=== PATIENT | female | born 1990 | race Caucasian/White ===

== ENCOUNTER 2019-10-22 19:18 | Inpatient (IN) | payer BC, SELFPAY ==
[2019-10-22] VITALS (45 sets, daily range): BP systolic 110–141; BP diastolic 55–89; PULSE 71–93; TEMP 36.6; O2SAT 96–100; BMI 35.3
[2019-10-22 20:35] LABS: Basophils Percent Auto 0.3 % (0.2-1.2); Eosinophils Absolute Auto 0.1 K/mm3 (0-0.3); Eosinophils Percent Auto 0.5 % (0-4.4); Hematocrit 34.1 % (37.0-47.0); Hemoglobin 11.3 g/dL (12.0-15.0); Immature Granulocyte Absolute 0.04 K/mm3 (0.00-0.031); Immature Granulocyte Percent A 0.4 % (0-0.5); Lymphocytes Absolute Auto 2.11 K/mm3 (0.9-3.2); Lymphocytes Percent Auto 19.2 % (18.3-44.2); Mean Corpuscular HGB Conc 33.1 g/dl (32-36); Mean Corpuscular Volume 87.7 fl (80-100); Mean Platelet Volume 11.2 fl (7.4-10.4); Monocytes Absolute Auto 0.8 K/mm3 (0.1-0.6); Monocytes Percent Auto 7.5 % (2.6-8.5); Neutrophils Absolute Auto 7.9 K/mm3 (1.3-6.7); Neutrophils Percent Auto 72.1 % (45.5-73.1); Platelet Count Result 232 k/mm3 (150-375); Red Blood Count 3.89 M/mm3 (4.2-5.4); Red Cell Distribution Width 13.3 % (11.5-14.5)
[2019-10-22] MEDS: LACTATED RINGERS 1,000 ML 125 ML IV CONT ×2 (20:40→21:30)
--- NOTE | 2019-10-22 21:05 | WPDANESEPPF ---
Anes - Initial Pre Proc Eval Procedure: labor epidural Date/Time: 10/22/19 21:05 Surgeon: Anais Bangura MD Pre Op Diagnosis: labor pain Pre Op Diagnosis: Contractions Patient Data Age: 29 Gender: F Height: 1.6 m Weight: 90.5 kg Last Vital Signs Pulse 83 10/22/19 21:03 BP 121/55 L 10/22/19 21:03 Pulse Ox 100 10/22/19 21:04 Allergies Allergy/AdvReac Type Severity Reaction Status Date / Time No Known Allergies Allergy Verified 10/20/19 14:54 Home Medications Medication Instructions Recorded Confirmed Type pantoprazole 40 mg tablet,delayed 40 mg PO QAM 10/06/19 History release prenat.vits,heather,zzj-phwb-hdpdv 1 tablet PO DAILY 10/06/19 History Laboratory Tests 10/22/19 10/22/19 10/22/19 20:30 20:30 20:30 WBC 11.0 K/mm3 H K/mm3 (4.5-10.0) RBC 3.89 M/mm3 L M/mm3 (4.2-5.4) Hgb 11.3 g/dL L g/dL (12.0-15.0) Hct 34.1 % L % (37.0-47.0) MCV 87.7 fl fl (80-100) MCH 29.0 pg pg (26-34) MCHC 33.1 g/dl g/dl (32-36) RDW 13.3 % % (11.5-14.5) Plt Count 232 k/mm3 k/mm3 (150-375) MPV 11.2 fl H fl (7.4-10.4) Immature Gran % (Auto) 0.4 % % (0-0.5) Neut % (Auto) 72.1 % % (45.5-73.1) Lymph % (Auto) 19.2 % % (18.3-44.2) [place] % (Auto) 7.5 % % (2.6-8.5) Eos % (Auto) 0.5 % % (0-4.4) Baso % (Auto) 0.3 % % (0.2-1.2) Lymph # (Auto) 2.11 K/mm3 K/mm3 (0.9-3.2) [place] # (Auto) 0.8 K/mm3 H K/mm3 (0.1-0.6) Eos # (Auto) 0.1 K/mm3 K/mm3 (0-0.3) Baso # (Auto) 0.0 K/mm3 K/mm3 (0.0-0.1) Abs Immat Gran (auto) 0.04 K/mm3 H K/mm3 (0.00-0.031) Absolute Neuts (auto) 7.9 K/mm3 H K/mm3 (1.3-6.7) Absolute Nucleated RBC 0.0 K/mm3 K/mm3 (0.0-0.012) Nucleated RBC % 0.0 % % (0.0-0.2) RPR Pending Blood Type Pending Antibody Screen Pending Patient hx anesthesia problems: none Family hx anesthesia problems: none PMFSH Past Medical History Medical History 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 Iron deficiency anemia Vaginal delivery 09/05/18, , full term, female, 8#2 Family History Family History Grandparent Carcinoma of colon Father Diabetes mellitus Hypertension Mother Hypertension Social History Social History Smoking status: Never smoker Alcohol intake: never Substance use: never Spiritual care concerns: No Anes - Eval Final PreProcedure Day of Procedure 10/22/19 21:05 Patient weight: obese Heart: regular rate and rhythm Lungs: clear to auscultation and normal air movement Airway: Mallampati scale Neurological: alert and oriented ASA classification: II Anesthetic plan: proceed Anesthesia type and monitoring: regional epidural and standard monitoring Informed Consent: The patient's anesthetic plan and its attendant risks and benefits were discussed with the patient/family/POA. Questions were solicited and answers provided to the satisfaction of the patient/family/POA.
--- NOTE | 2019-10-22 21:14 | LDADM ---
This patient, Carly Amaya, was admitted to Labor/Delivery/Recovery 104 on 10/22/19 at 19:18. Plans for labor, pain management and were discussed with patient. Patient/family oriented to hospital policies and general routines including ID bracelet, bed and alarms, visiting hours, pain management, procedures, bathroom and other care routines, personal items, smoking policy, room service/diet and guest tray routines, security routines, and visiting hours. Patient/Family are encouraged to report perceived risks to care and to ask questions if they do not understand what they are told or what they should do. See OBIX for further documentation.
[2019-10-22] MEDS: OXYTOCIN 30 UNITS/NS 500 ML 30 UNITS/500 ML BAG 999 UNITS IV CONT (22:06)
--- NOTE | 2019-10-22 22:14 | PM.OBPRVD ---
OB - Delivery Note Procedure Intrapartal events: None Induction method: none Delivery monitor: external FHT and external uterine Route of delivery: Laceration description: Vaginal - 1st Degree Delivery repair: vicryl Specimen: No Estimated blood loss (mL): 73 Anesthesia type: Epidural Disposition: floor [place] Baby Date of : 10/22/19 Time of : 22:01 Weeks of gestation at delivery: 39 gender: Male Weight (pounds): 7 Weight (ounces): 6 presentation: vertex Placenta delivery description: Spontaneous cord vessel description: 3 Vessels score one minute: 9 score five minutes: 9
[2019-10-22] MEDS: OXYTOCIN 30 UNITS/NS 500 ML 30 UNITS/500 ML BAG 125 UNITS IV CONT (22:38)
[2019-10-23 00:01] VITALS: BP 113/65; PULSE 78
[2019-10-23 00:16] VITALS: BP 110/74; PULSE 91
[2019-10-23] MEDS: WITCH HAZEL 40 PADS 1 PAD TOPICAL (00:16)
[2019-10-23] MEDS: BENZOCAINE 20% AER SPR (*SP) 56 GM CAN 1 SPRAY TOPICAL (00:16)
[2019-10-23] MEDS: IBUPROFEN 600 MG TABLET PO ×3 (00:40→19:15)
[2019-10-23 00:45] VITALS: BP 128/71; PULSE 80; RESP 12; TEMP 36.9
--- NOTE | 2019-10-23 01:19 | PC.NURSE ---
0037 Pt to floor per wheelchair accompanied by baby in crib and staff. Plan of care and floor routines explained to pt and she voices understanding. mom encouraged to make needs known to staff.
[2019-10-23 01:24] LABS: HIV 1/2 Ab P24 Ag Result Negative (Negative)
[2019-10-23 05:18] LABS: Hematocrit 32.4 % (37.0-47.0); Hemoglobin 10.6 g/dL (12.0-15.0)
--- NOTE | 2019-10-23 07:00 | PM.OBPNVD ---
OB - PN: Subj Subjective Date/time seen: 10/23/19 07:00 Patient comments: no complaints baby status: doing well OB - PN: Obj Data Labs CBC & Chem 7: 10/23/19 05:01 Labs: Laboratory Results - last 24 hr 10/22/19 10/22/19 10/23/19 20:30 20:30 00:01 WBC 11.0 H RBC 3.89 L Hgb 11.3 L Hct 34.1 L MCV 87.7 MCH 29.0 MCHC 33.1 RDW 13.3 Plt Count 232 MPV 11.2 H Immature Gran % (Auto) 0.4 Neut % (Auto) 72.1 Lymph % (Auto) 19.2 [place] % (Auto) 7.5 Eos % (Auto) 0.5 Baso % (Auto) 0.3 Lymph # (Auto) 2.11 [place] # (Auto) 0.8 H Eos # (Auto) 0.1 Baso # (Auto) 0.0 Abs Immat Gran (auto) 0.04 H Absolute Neuts (auto) 7.9 H Absolute Nucleated RBC 0.0 Nucleated RBC % 0.0 HIV 1&2 Ab/P24 Ag 4thGn Negative Blood Type A Positive Antibody Screen Negative 10/23/19 05:01 WBC RBC Hgb 10.6 L Hct 32.4 L MCV MCH MCHC RDW Plt Count MPV Immature Gran % (Auto) Neut % (Auto) Lymph % (Auto) [place] % (Auto) Eos % (Auto) Baso % (Auto) Lymph # (Auto) [place] # (Auto) Eos # (Auto) Baso # (Auto) Abs Immat Gran (auto) Absolute Neuts (auto) Absolute Nucleated RBC Nucleated RBC % HIV 1&2 Ab/P24 Ag 4thGn Blood Type Antibody Screen OB - PN A/P Plan day: 1 Plan: routine care Time Spent With Patient Time: Total time spent is greater than 50% in coordination of care (as documented) at patient's floor/unit and/or counseling patient: Exam Const: General: comfortable Resp: Effort & Inspection: normal respiratory effort Psych: Appearance: grossly normal Affect: normal affect Attitude: cooperative Judgement: Good judgement present (Psych)
--- NOTE | 2019-10-23 07:52 | PM.OBDSVD ---
DS: Admitting Diagnosis Admitting Diagnosis Admitting Diagnosis: Contractions DS: Discharge Diagnosis Discharge Diagnosis (1) : Code(s): Z34.90 - Encounter for supervision of normal , unspecified, unspecified trimester Status: Acute OB - DS: Summary OB Procedures : None OB Procedures Intrapartum: Spontaneous Vag Delivery OB Procedures: : None Peripartum Data Delivery Method: Natural Vaginal Laceration description: Perineal - 1st Degree complications: none Status at Discharge Functional status at discharge: independent ambulation Overall status at discharge: patient is progressing back to baseline Time Spent with Patient Time attestation: Total time spent providing and/or coordinating discharge services: Time spent: Less than 30 minutes DS: Data Data Completed and Pending Labs on day of discharge: Labs from last 24 hours 10/23/19 10/23/19 10/22/19 05:01 00:01 20:30 WBC RBC Hgb 10.6 L Hct 32.4 L MCV MCH MCHC RDW Plt Count MPV Immature Gran % (Auto) Neut % (Auto) Lymph % (Auto) [place] % (Auto) Eos % (Auto) Baso % (Auto) Lymph # (Auto) [place] # (Auto) Eos # (Auto) Baso # (Auto) Abs Immat Gran (auto) Absolute Neuts (auto) Absolute Nucleated RBC Nucleated RBC % RPR HIV 1&2 Ab/P24 Ag 4thGn Negative Blood Type A Positive Antibody Screen Negative 10/22/19 10/22/19 20:30 20:30 WBC 11.0 H RBC 3.89 L Hgb 11.3 L Hct 34.1 L MCV 87.7 MCH 29.0 MCHC 33.1 RDW 13.3 Plt Count 232 MPV 11.2 H Immature Gran % (Auto) 0.4 Neut % (Auto) 72.1 Lymph % (Auto) 19.2 [place] % (Auto) 7.5 Eos % (Auto) 0.5 Baso % (Auto) 0.3 Lymph # (Auto) 2.11 [place] # (Auto) 0.8 H Eos # (Auto) 0.1 Baso # (Auto) 0.0 Abs Immat Gran (auto) 0.04 H Absolute Neuts (auto) 7.9 H Absolute Nucleated RBC 0.0 Nucleated RBC % 0.0 RPR Pending HIV 1&2 Ab/P24 Ag 4thGn Blood Type Antibody Screen Discharge Plan Discharge Attending physician on discharge: Anais Bangura Discharging Clinician: Brenda Bowens Anticipated Discharge Date/Time: 10/24/19 11:00 Patient Disposition: Home, Self-Care Activity: may shower and pelvic rest Diet: regular Discharge Instructions: Education: Mom and Baby Guide and Preeclampsia handout Given to: Mother Follow-Up: Call your delivering provider's office for an appointment to be seen in: 4 Weeks Mom and baby should come to the [facility] for the follow-up appointment. Appointment Date/Time: October 25, 2019 at 8:00 am What to expect at your follow-up visit: Physical Assessment Call [phone] if you are unable to keep your appointment time. BREAST CARE: * Wear a snug supportive bra. For engorgement or discomfort Bottle Feeding: May apply ice packs EPISIOTOMY/PERINEAL CARE: * Until bleeding stops, use your mitch bottle after urinating * Change your pad frequently throughout the day * You may take sitz baths several times a day (fill your bathtub with warm water and soak for 20 minutes.) Do NOT bathe in the water * No tub baths until seen by your physician - You may shower ACTIVITY: * Rest as much as possible. * Do not exercise or lift anything heavier than your baby (such as laundry or other children.) * Avoid stairs or driving as much as possible. * Do not put anything into the vagina. No douching, tampons, or sexual activity until seen by physician. NOTIFY PHYSICIAN IF YOU HAVE ANY QUESTIONS OR IF ANY OF THE FOLLOWING SYMPTOMS OCCUR: * If your episiotomy or incision becomes red, swollen, or more painful than what you have experienced in the hospital. * If your vaginal bleeding becomes foul smelling. * If your vaginal bleeding becomes more heavy than a period or if your bleeding changes from pink to bright red. However, yo
[2019-10-23 09:25] VITALS: BP 125/82; PULSE 87; RESP 18; TEMP 36.8
--- NOTE | 2019-10-23 09:45 | PC.NURSE ---
Mother called out for assist with waking for feeding. Infant was circumcised within the last hour. Reviewed may be sleepy this feeding. Demonstrated stimulation techniques to wake . was able to wake with feeding cues noted. Reviewed feeding cues, frequencies, duration of feedings, feeding elimination flow sheet, and signs of adequate intake. Reviewed positioning/alignment in cross cradle, holding breast in U hold and guided asymmetrical latch on. Discussed rational for each. was able to latch correctly with first attempt. Infant nursed eagerly, with steady draws and frequent swallowing noted. Reviewed signs of a correct latch, effective nursing and suck swallow ratio. Infant was able to maintain latch without discomfort to mother. Nipple care reviewed. Suggested mother stimulate during feeding to keep infant awake and nursing effectively and to assist with maintaining deep latch. Demonstrated how to adjust latch more deeply while feeding. Instructed mother to call out for RN assistance if she is unable to latch infant for feeding or she has discomfort with nursing. Instructed feeding should be initiated three hours from start of last feeding or if feeding cues are noted before. Mother voiced understanding of information shared.
[2019-10-23 09:51] LABS: Rapid Plasma Reagin Non-Reactive (NonReactive)
[2019-10-23] MEDS: MULTIVIT/MIN/PREN/FOL AC/IRON TABLET 1 TAB PO (10:35)
--- NOTE | 2019-10-23 13:25 | PC.NURSE ---
Mother called out for assist to wake for feeding. Demonstrated stimulation techniques to wake. Assisted with to breast. sleepy and several attempts made before was able to latch. Small amount of sugar water to tongue to entice to feed. Reviewed positioning/alignment in cross cradle, holding breast in U hold and guided asymmetrical latch on. Discussed rational for each. Infant nursed eagerly, with steady draws and frequent swallowing noted. Reviewed signs of a correct latch, effective nursing and suck swallow ratio. Infant was able to maintain latch without discomfort to mother. Nipple care reviewed. Suggested mother stimulate during feeding to keep infant awake and nursing effectively and to assist with maintaining deep latch. Demonstrated how to adjust latch more deeply while feeding. Instructed mother to call out for RN assistance if she is unable to latch for feeding or she has discomfort with nursing. Instructed feeding should be initiated three hours from start of last feeding or if feeding cues are noted before. Mother voiced understanding of information shared.
[2019-10-23 19:30] VITALS: BP 115/69; PULSE 77; RESP 18; TEMP 36.5; O2SAT 98
[2019-10-24] MEDS: WITCH HAZEL 40 PADS 1 PAD TOPICAL (05:13)
[2019-10-24] MEDS: IBUPROFEN 600 MG TABLET PO (05:13)
--- NOTE | 2019-10-24 07:44 | PM.OBPNVD ---
OB - PN: Subj Subjective Date/time seen: 10/24/19 07:44 OB - PN: Obj Data Labs CBC & Chem 7: 10/23/19 05:01 Labs: Laboratory Results - last 24 hr 10/22/19 20:30 RPR Non-reactive OB - PN A/P Plan day: 2 Plan: discharge home Time Spent With Patient Time: Total time spent is greater than 50% in coordination of care (as documented) at patient's floor/unit and/or counseling patient: Review of Systems Review of Systems: All systems reviewed & are unremarkable except as noted in HPI and below Exam Const: General: comfortable Psych: Appearance: grossly normal Affect: normal affect Attitude: cooperative Judgement: Good judgement present (Psych)
[2019-10-24] MEDS: MULTIVIT/MIN/PREN/FOL AC/IRON TABLET 1 TAB PO (07:54)
[2019-10-24 07:55] VITALS: BP 129/70; PULSE 83; RESP 18; TEMP 36.8; O2SAT 98
[2019-10-24] MEDS: POLYSACCHARIDE IRON COMPLEX 150 MG CAPSULE PO (07:56)
--- NOTE | 2019-10-24 08:00 | PC.NURSE ---
Patient instructed to view the discharge video Mother & Baby Care, The First Two Weeks . Patient was given the opportunity and encouraged to ask questions. Patient verbalized understanding of information shared and has been given the mother/baby guide for home reference.
[2019-10-24] MEDS: ACETAMINOPHEN 325 MG TABLET 650 MG PO (10:33)
[2019-10-24] MEDS: MEASLES,MUMPS,RUBELLA VACCINE 0.5 ML VIAL SUB-Q (11:49)
[2019-10-25 08:27] VITALS: BP 125/82; PULSE 83; RESP 20; O2SAT 100
== END 2019-10-24 11:02 | disposition home or self-care (01) | DRG 807 ==
LOC: ANHLDR 19:56 → ANHOB2 10-23 01:16
PROVIDERS: Admitting Provider Obstetrics & Gynecology; Visit Provider Obstetrics & Gynecology
DX: O99.02 Anemia complicating childbirth (principal); Z37.0 Single live birth; Z3A.39 39 weeks gestation of pregnancy; D50.9 Iron deficiency anemia, unspecified; O99.214 Obesity complicating childbirth; E66.9 Obesity, unspecified; O70.0 First degree perineal laceration during delivery
CPT/HCPCS: 36415; 85014; 85018; 85025; 86592; 86703; 86850; 86900; 86901; 90710; A9270; G0432; J2590; J2795; J7120